=== PATIENT | male | born 1985 | race Two or more races ===

== ENCOUNTER 2018-10-15 13:54 | Emergency (ER) | payer SELFPAY ==
[~2018-10-15] VITALS: Ht 175.3 cm; Wt 77.0 kg
[2018-10-15 13:59] VITALS: BP 116/74
--- NOTE | 2018-10-15 14:19 | NUR ---
task rn: PT REPORTS HE IS CONSTIPATED. REPORTS ANAL PAIN. PT REPORTS HE HASBEEN CONSTIPATED FOR 5 DAYS. HAS NOT USED ANY MEDICATION TO RELEIVE SYMPTOMS. PT REPORTS HIS LAST BM WAS VERY STRINGY LIKE. MD Domínguez performed rectal exam.
[2018-10-15] MEDS ORDERED: MAGNESIUM CITRATE 300ML ORAL SOL PO ONE (14:30)
[2018-10-15] MEDS ORDERED: MAGNESIUM CITRATE 300ML ORAL SOL ONE (14:47)
== END 2018-10-15 15:14 | disposition home or self-care (01) ==
LOC: ED 15:06
DX: K59.00 Constipation, unspecified (principal); R10.84 Generalized abdominal pain
CPT/HCPCS: 99282

== ENCOUNTER 2019-03-11 12:41 | Emergency (ER) ==
[~2019-03-11] VITALS: Ht 175.3 cm; Wt 80.2 kg
[2019-03-11 12:43] VITALS: BP 129/89
[2019-03-11 13:08] LABS: BASOPHILS # (AUTO) 0.05 x10^3/uL (0-0.1); BASOPHILS % (AUTO) 1 % (0-1); EOSINOPHILS # (AUTO) 0.12 x10^3/uL (0-0.4); EOSINOPHILS % (AUTO) 2 % (1-7); LYMPHOCYTES # (AUTO) 1.53 x10^3/uL (1-3.4); LYMPHOCYTES % (AUTO) 31 % (22-44); MD NO; MEAN CORPUSCULAR HEMOGLOBIN 32.9 pg (27.5-34.5); MEAN CORPUSCULAR HGB CONC 34.4 g/dL (33.2-36.2); MEAN CORPUSCULAR VOLUME 95.7 fL (81-97); MEAN PLATELET VOLUME 7.6 fL (7.4-10.4); MONOCYTES # (AUTO) 0.33 x10^3/uL (0.2-0.8); MONOCYTES % (AUTO) 7 % (2-9); NEUTROPHILS # (AUTO) 2.97 x10^3/uL (1.8-6.8); NEUTROPHILS % (AUTO) 60 % (42-75); PLATELET COUNT 205 x10^3/uL (130-400); RED BLOOD COUNT 5.33 x10^6/uL (4.38-5.82); RED CELL DISTRIBUTION WIDTH 13.1 % (9.4-14.8)
[2019-03-11 13:21] LABS: ALANINE AMINOTRANSFERASE 40 U/L (12-78); ALBUMIN 4.1 g/dL (3.4-5.0); ANION GAP 8 mmol/L (5-15); CALCIUM 8.7 mg/dL (8.5-10.1); CHLORIDE 105 mmol/L (98-107); CREATININE 1.05 mg/dL (0.7-1.3)
[2019-03-11 13:23] LABS: ALKALINE PHOSPHATASE 67 U/L (45-117); BILIRUBIN,TOTAL 1.5 mg/dL (0.2-1.0)
--- NOTE | 2019-03-11 13:33 | NUR ---
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
--- NOTE | 2019-03-11 13:37 | NUR ---
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 ERMD AT BEDSIDE. PT WITH C/O ABD PAIN WITH DIARRHEA THEN HAVING PERIODS OF CONTIPATION. PT STATES THIS HAS BEEN GOING ON FOR THE PAST 5 MONTHS. PT DENIES N/V.
--- NOTE | 2019-03-11 14:32 | NUR ---
Patient/Caregiver given discharge instructions and they have confirmed that they understand the instructions. Patient ambulatory with steady gait.
== END 2019-03-11 14:33 | disposition home or self-care (01) ==
LOC: ED 13:55
DX: K58.0 Irritable bowel syndrome with diarrhea (principal)
CPT/HCPCS: 36415; 80053; 83690; 85025; 99283